=== PATIENT | female | born 1965 | race Two or more races ===

== ENCOUNTER → 2024-11-13 | Day surgery (SDC) | payer OTHER ==
[2024-11-09 13:21] VITALS: BMI 22.8
[~2024-11-13] MED LIST: DEXAMETHASONE SOD PHOSPHATE 4 MG/1 ML VIAL ONE; ELECTROLYTE-148 SOLN 1,000 ML IV SCH; IBUPROFEN 600 MG TABLET (FP) PO PRN; IBUPROFEN 800 MG/8 ML IJ IVPB PRN; KETOROLAC TROMETHAMINE 30 MG/1 ML VIAL ONE; LIDOCAINE HCL/PF 2% SDV 5ML VIAL ONE; MIDAZOLAM HCL 2 MG/2 ML SINGLE DOSE VIAL ONE; ONDANSETRON 4 MG/2 ML VIAL IVPUSH PRN; ONDANSETRON 4 MG/2 ML VIAL ONE; PHENYLEPHRINE HCL 10 MG/1 ML SINGLE DOSE VIAL ONE; PROPOFOL 40 ML ONE; SUCCINYLCHOLINE CHLORIDE 200 MG/10 ML SYRINGE ONE; metroNIDAZOLE 500 MG PREMIXED 1,000 MG/200 ML MG IVPB ONE
[2024-11-13] MEDS: LACTATED RINGERS SOLUTION 1,000 ML IV SCH (08:41)
[2024-11-13 09:55] VITALS: RESP 18
[2024-11-13 10:17] VITALS: BP 146/83; PULSE 61; TEMP 97.3
== END | disposition home or self-care (01) ==
LOC: JASU-SURG 06:28
PROVIDERS: ATTEND Obstetrics & Gynecology
PROC: 0UB98ZZ Excision of Uterus, Via Natural or Artificial Opening Endoscopic (ICD-10-PCS; principal; 2024-11-13 07:30)
DX: D25.9 Leiomyoma of uterus, unspecified (principal)
CPT/HCPCS: 86850; 86900; 86901; 88305-TC; 94760